=== PATIENT | male | born 1935 | race African-American/Black ===

== ENCOUNTER 2018-12-20 18:31 | Inpatient (IN) | payer OTHER ==
[~2018-12-20] VITALS: Ht 175.3 cm; Wt 64.9 kg
[2018-12-20 18:43] VITALS: BP 101/60
[2018-12-20 19:01] LABS: HEMATOCRIT 31.8 % (42.0-52.0); HEMOGLOBIN 9.4 gm/dL (14.0-18.0); MCH 17.9 pg (26.0-34.0); MCHC 29.7 g/dL (28.0-37.0); MCV 60.1 fL (80.0-100.0); PLATELET COUNT 382 thou/uL (150-400); RBC 5.28 mil/uL (4.50-6.00); RDW 18.1 % (10.5-14.5); WBC 14.8 thou/uL (4.0-11.0)
[2018-12-20 19:10] LABS: ANION GAP 16 mmol/L (7-16); BUN 38 mg/dL (7-18); CALCIUM 9.7 mg/dL (8.5-10.1); CHLORIDE 103 mmol/L (98-107); CO2 20 mmol/L (21-32); CREATININE 2.6 mg/dL (0.7-1.3); GLUCOSE 172 mg/dL (74-106); POTASSIUM 4.4 mmol/L (3.5-5.1); SODIUM 139 mmol/L (136-145)
[2018-12-20 19:21] LABS: ALBUMIN 3.8 g/dL (3.4-5.0); DIRECT BILIRUBIN 0.2 mg/dL (<0.1-0.3); LIPASE 57 U/L (73-393); SGOT 32 U/L (15-37); SGPT 13 U/L (30-65); TOTAL BILIRUBIN 0.5 mg/dL (<0.1-1.0); TOTAL PROTEIN 7.9 g/dL (6.4-8.2); TROPONIN-I <0.06 ng/mL (<0.06)
[2018-12-20 19:22] LABS: APTT 23.5 Seconds (24.5-32.8); PROTIME 10.8 Seconds (9.3-11.4)
[2018-12-20 19:28] LABS: ABSOLUTE NEUTROPHILS 12.1 thou/uL (1.4-8.2)
[2018-12-20 19:29] LABS: ANISOCYTOSIS 2+; HYPOCHROMASIA 2+; MICROCYTES 2+; SCHISTOCYTES OCCASIONAL
[2018-12-20 21:01] VITALS: BP 117/55
[2018-12-20] MEDS ORDERED: PRILOSEC OTC20 MG PO (21:20)
[2018-12-20 22:05] VITALS: BP 104/57
--- NOTE | 2018-12-21 02:02 | NUR ---
ADMITTED FROM ER AT 2140 PER CART. TRANSFERED FROM CART TO BED. NO SKIN ISSUES. ADMISSION PROCESS COMPLETED, ORIENTED TO ROOM AND FLOOR POLICIES. WORKING ON GOALS AND PLAN OF CARE FOR NOC. NPO FOR POSSIBLE PROCEDURE IN AM. NO PRESENT COMPLAINTS OF NAUSEA OR VOMMITING. DAUGHTER HAS GONE HOME FOR NOC. CONTINUE TO ASSES CLOSELY.
[2018-12-21 03:55] VITALS: BP 108/51
[2018-12-21 04:09] LABS: HEMATOCRIT 23.2 % (42.0-52.0); MCH 18.4 pg (26.0-34.0); MCHC 30.3 g/dL (28.0-37.0); MCV 60.8 fL (80.0-100.0); RBC 3.81 mil/uL (4.50-6.00); RDW 17.9 % (10.5-14.5); WBC 7.7 thou/uL (4.0-11.0)
[2018-12-21 04:15] LABS: CALCIUM 8.7 mg/dL (8.5-10.1); POTASSIUM 4.4 mmol/L (3.5-5.1)
[2018-12-21 04:57] LABS: URINE BILIRUBIN NEGATIVE (Negative); URINE BLOOD NEGATIVE (Negative); URINE CLARITY CLEAR; URINE COLOR YELLOW; URINE GLUCOSE-RANDOM* NEGATIVE (Negative); URINE KETONES NEGATIVE (Negative); URINE LEUKOCYTES-REFLEX NEGATIVE (Negative); URINE NITRITE-REFLEX NEGATIVE (Negative); URINE PROTEIN (DIPSTICK) NEGATIVE (Negative); URINE SPECIFIC GRAVITY 1.025 (1.005-1.035); URINE UROBILINOGEN 0.2 E.U./dl (0.2-1.0)
--- NOTE | 2018-12-21 07:32 | NUR ---
REVIEWED CARDIAC INTERFERENCE SHEET WITH DAUGHTER MARIAH AT 0005, ANSWERED QUESTIONS AND DAUGHTER SIGNED.
--- NOTE | 2018-12-21 10:20 | NUR ---
ASSESSMENT: CM REVIEWED CHART AND MET WITH PT AND CONTACTED PATIENTS DAUGHTERS FACUNDO AND VINCE. CM SPOKE WITH GI MONEY MANAGER WHO WAS TRYING TO SEE WHO THE DPOA WAS. CM CONTACTED BOTH DAUGHTERS AND THEY REPORT THEY ARE BOTH THE DPOA BUT VINCE STATES SHE IS PRIMARY AND PATIENT LIVES WITH FACUNDO. CM NOTIFIED GI MONEY MANAGER AND PROVIDED HER WITH THEIR CONTACT INFORMATION. CM REQUESTED THAT VINCE BRING A COPY OF THE DPOA PAPERWORK TO THE HOSPITAL NEXT TIME SHE VISITS. PT LIVES AT HOME WITH DAUGHTER FACUNDO IN AN APT. PT HAS NO STEPS TO ENTER OR ONCE INSIDE. PT USES A WALKER FOR AMBULATION. FACUNDO WORKS NIGHTS SO IS THERE WITH THE PATIENT ALL DURING THE DAY AND THEN WORKS FROM 1030-6AM AND WHILE SHE IS GONE THEY HAVE A LARGE FAMILY AND SOMEONE STAYS THE NIGHT WITH THE PT. PT HAS A GRAB BAR AND SHOWER CHAIR. VINCE STATES SHE FEELS HE HAS BEEN TO [facility] YEARS AGO AND WAS SENT HOME WITH HH BUT UNSURE OF THE AGENCY. SHE STATES THEY HAVE BEEN CONSIDERING HOSPICE BUT DO NOT KNOW MUCH ABOUT IT. CM NOTIFIED HER THAT GI PHYSICIAN WAS WANTING TO GET AHOLD OF HER AND THEY CAN DISCUSS OPTIONS AND CM CAN HELP ASSIST WITH WHATEVER DECISION THEY DECIDE. CM WILL CONTINUE TO FOLLOW UP.
[2018-12-21 11:25] VITALS: BP 103/49
[2018-12-21 16:52] VITALS: BP 106/58
--- NOTE | 2018-12-21 18:41 | NUR ---
PATIENT OREIENTED TO SELF AND PLEASANT. SPOKE WITH PATIENT ADULT CHILDREN AND AND WERE AT BEDSIDE THIS AFTERNOON. THIS NURSE SPOKE WITH FAMILY REGARDING MAINTAINING CURRENT TREATMENTS AND NOT ANY INVASIVE OR ADDITIONAL TREATMENT FOR NOW. PATIENT IS FULL CODE AND IS CONSIDERING PLACING PATIENT ON HOSPICE. WILL CONTINUE TO MONITOR.
[2018-12-21 19:50] VITALS: BP 108/59
--- NOTE | 2018-12-22 04:31 | NUR ---
Pt. oriented to person only. He has been repositioned for comfort. Bed alarm on for safety. No active bleeding noted. Pt. pulled out IV and tied IV tubings in knots despite it being wrapped with coban. New IV placed on right upper arm. Protonix gtt. and IV fluids infusing. Pt. frequently reoriented. He didn't sleep till late this am. Will continue to monitor.
[2018-12-22 05:56] LABS: HEMATOCRIT 23.4 % (42.0-52.0); MCH 17.9 pg (26.0-34.0); MCHC 29.8 g/dL (28.0-37.0); MCV 60.1 fL (80.0-100.0); RBC 3.89 mil/uL (4.50-6.00); RDW 18.3 % (10.5-14.5); WBC 6.1 thou/uL (4.0-11.0)
[2018-12-22 06:14] LABS: ALBUMIN 2.7 g/dL (3.4-5.0); CALCIUM 8.2 mg/dL (8.5-10.1); CREATININE 1.5 mg/dL (0.7-1.3); POTASSIUM 4.3 mmol/L (3.5-5.1); TOTAL BILIRUBIN 0.4 mg/dL (<0.1-1.0); TOTAL PROTEIN 5.5 g/dL (6.4-8.2)
[2018-12-22 07:30] VITALS: BP 124/57
--- NOTE | 2018-12-22 07:40 | EKG ---
[place] [id number] [place] [address] ELECTROCARDIOGRAM REPORT Name: DANIELLE TELLEZ Room #: 360-P ADM IN M.R.#: [id number] ������������������ Admission: 12/20/18 ������������������ Attend Phys: Nitish Viramontes MD Discharge: ������������������ Date of : 37 Report #: [id number] ����������������������������������������������������������������� [id number] THIS REPORT FOR: //name// [facility] ED Test Date: 2018-12-20 Test Time: 18:50:12 Pat Name: DANIELLE TELLEZ Department: Room: 360 Gender: M Metal Worker: DIVYA : 1935 Requested By: Bruno Henning Order Number: [id number] MD: Vj Galicia Measurements Intervals [place] Rate: 90 P: 40 AK: 162 QRS: -33 QRSD: 109 T: -7 QT: 343 QTc: 420 Interpretive Statements Sinus rhythm Abnormal R-wave progression, early transition Nonspecific ST and T wave abnormality Inferior infarct, old No previous ECG available for comparison Electronically Signed On 12-22-2018 7:40:03 CDT by Vj Galicia [email or web address] ��������������������������������������������� <ELECTRONICALLY SIGNED> ���������������������������������������� By: Vj Galicia MD, [facility] ��������������������������������������������� 12/22/18 0740 49 49 Vj Galicia MD, [facility] /EPI
[2018-12-22 09:56] LABS: % SATURATION 4 % (20-39); IRON 9 ug/dL (65-175); TIBC 232 ug/dL (250-450)
[2018-12-22 11:40] VITALS: BP 137/51
--- NOTE | 2018-12-22 15:20 | NUR ---
ON-GOING ASSESSMENT: PT IS SLOWLY PROGRESSING TOWARDS DISCHARGE GOALS. PTS DIET WAS ADVANCED. CM SPOKE WITH DAUGHTER VINCE ABOUT DISCHARGE PLANS AND SHE STATES SHE IS GOING TO TALK WITH FAMILY WHETHER THEY WISH HE RETURN HOME WITH HH AND 24 HR SUPERVISION OR IF THEY WANT TO GO WITH SNF. CM PROVIDED A SNF LIST AT THE BEDSIDE OF PATIENT FOR THEM TO REVIEW. CM WAITING TO HEAR BACK FROM FAMILY. PHYSICAL THERAPY IS CURRENTLY RECOMMENDING SNF.
[2018-12-22 15:54] VITALS: BP 110/83
[2018-12-22 19:55] VITALS: BP 127/76
--- NOTE | 2018-12-22 20:18 | NUR ---
PATIENT OREINTED TO SELF. HAS TENDENCY TO PULL AT LINES, TELEMETRY CABLES IF HE SEES THEM AND STATES I NEED TO REMOVE THESE. PATIENT HAD EXCELLENT APPETITE AND EATS ALL FOOD ON MEAL TRAY. PT, OT AND SPEECH WORKED WITH PATIENT TODAY. PATIENT SAT IN CHAIR FOR SEVERAL HOURS TODAY BUT WANTED TO GO BACK TO BED. NO STOOL TODAY. CONTINUE TREATMENTS. NO VISITORS OBSERVED AT BEDSIDE TODAY.
--- NOTE | 2018-12-23 03:16 | NUR ---
ASSESSMENT: PT REMAIN ALERT AND ORIENT TIMES ONE, DOES ANSWER TO NAME BEING CALLED. DOES STATE HIS NAME AND 1/5 OF HIS BD CORRECTLY. NO EMESIS THIS SHIFT. INCONTINENT TO URINE. NO BM. KEPT BUSY BY FOLDING WASH CLOTHES UNTIL FALLING OFF TO SLEEP. VSS, AFEBRILE. TURNED EVERY TWO HOURS. SB PER MONITOR. RIGHT SHOULDER IV INTACT WITH IV FLUIDS INFUSING. SLOW PROGRESS TOWARDS DC GOALS, WILL CONTINUE TO MONITOR.
[2018-12-23 04:15] VITALS: BP 130/69
[2018-12-23 05:22] LABS: HEMATOCRIT 24.5 % (42.0-52.0); HEMOGLOBIN 7.4 gm/dL (14.0-18.0); MCHC 30.1 g/dL (28.0-37.0); MCV 59.9 fL (80.0-100.0); RBC 4.1 mil/uL (4.50-6.00); WBC 6.3 thou/uL (4.0-11.0)
[2018-12-23 05:31] LABS: CALCIUM 8.4 mg/dL (8.5-10.1); CREATININE 1.5 mg/dL (0.7-1.3); MAGNESIUM 1.6 mg/dL (1.8-2.4); POTASSIUM 4.3 mmol/L (3.5-5.1)
[2018-12-23 08:08] VITALS: BP 116/63
[2018-12-23 10:28] VITALS: BP 116/63
[2018-12-23 11:02] VITALS: BP 106/61
--- NOTE | 2018-12-23 13:51 | NUR ---
ON-GOING ASSESSMENT: CM REVIEWED CHART AND MET WITH ATTENDING. PT IS SLOWLY PROGRESSING TOWARDS DISCHARGE GOALS. CM SPOKE WITH PATIENTS DAUGHTER FACUNDO WHO REPORTS THEY WISH TO TAKE PATIENT HOME WITH HH AT DISCHARGE AND HAVE GOOD SUPPORT FROM FAMILY TO HELP AND DO NOT WANT TO PUT HIM IN A SNF. PLANS ARE FOR POSSIBLE DISCHARGE TOMORROW WITH HH. CM NOTIFIED [facility].
[2018-12-23 15:34] VITALS: BP 100/51
[2018-12-23 19:24] VITALS: BP 83/47
--- NOTE | 2018-12-23 20:13 | NUR ---
PT PLEASENTLY CONFUSED..SITTING IN CHAIR MOST OF DAY...NOT IMPULSIVE..FALL PREC IN PLACE..
[2018-12-24 03:12] VITALS: BP 114/46
--- NOTE | 2018-12-24 04:19 | NUR ---
Patient making slow progress towards outcome goals. Vital signs and rhythm stable. No active signs of bleeding. IVfluids infusing.
[2018-12-24 06:33] LABS: CALCIUM 8.9 mg/dL (8.5-10.1); CREATININE 1.4 mg/dL (0.7-1.3); POTASSIUM 4.7 mmol/L (3.5-5.1)
[2018-12-24 08:06] VITALS: BP 109/53
[2018-12-24 09:02] LABS: HEMATOCRIT 26.5 % (42.0-52.0); MCH 18.1 pg (26.0-34.0); MCHC 30.2 g/dL (28.0-37.0); MCV 59.9 fL (80.0-100.0); RBC 4.42 mil/uL (4.50-6.00)
[2018-12-24 11:37] VITALS: BP 110/51
[2018-12-24] MEDS ORDERED: IRON325 PO (12:36)
[2018-12-24] MEDS ORDERED: ACETAMINOPHEN325 M1 PO (12:36)
[2018-12-24] MEDS ORDERED: PANTOPRAZOLE SO40 M1 PO (12:36)
[2018-12-24] MEDS ORDERED: CARAFATE 11 GM/10 M1 PO (12:36)
--- NOTE | 2018-12-24 13:41 | NUR ---
ON-GOING ASSESSMENT: PT HAS ORDERS TO DISCHARGE HOME TODAY WITH HH THIS IS THE FAMILY'S PREFERENCE. PT LIVES AT HOME WITH HIS DAUGHTER FACUNDO WHO IS HERE TO TAKE HIM HOME. CM NOTIFIED [facility] OF DISCHARGE TODAY. DAUGHTER AND PT REPORT NO FURTHER QUESTIONS.
--- NOTE | 2018-12-24 14:34 | NUR ---
ASSUMED PATIENT CARE AT 0700. ALERT TO SELF. VSS. NO BLEDING NOTED. MAX ASSISTED TO CHAIR. WILL DC TO HOME WITH HH.
== END 2018-12-24 15:01 | disposition home health service (06) | DRG 380 ==
LOC: ER 18:31 → 3W 20:37 → EROBS 20:37 → 3W 21:38 → ENTRNSPT 12-24 14:39 → 3W 12-24 15:01
PROVIDERS: Emergency Medicine; Nurse Practitioner; Nurse Practitioner Family; ADMIT Internal Medicine
DX: K22.11 Ulcer of esophagus with bleeding (principal); N17.0 Acute kidney failure with tubular necrosis; D62 Acute posthemorrhagic anemia; E46 Unspecified protein-calorie malnutrition; K25.4 Chronic or unspecified gastric ulcer with hemorrhage; K21.9 Gastro-esophageal reflux disease without esophagitis; K31.84 Gastroparesis; I12.9 Hypertensive chronic kidney disease with stage 1 through stage 4 chronic kidney disease, or unspecified chronic kidney disease; F03.90 Unspecified dementia, unspecified severity, without behavioral disturbance, psychotic disturbance, mood disturbance, and anxiety; N18.3 Chronic kidney disease, stage 3 (moderate); Z68.21 Body mass index [BMI] 21.0-21.9, adult; Z87.11 Personal history of peptic ulcer disease; Z86.718 Personal history of other venous thrombosis and embolism; Z88.8 Allergy status to other drugs, medicaments and biological substances; Z86.010 Personal history of colon polyps; Z79.899 Other long term (current) drug therapy
CPT/HCPCS: 10879